=== PATIENT | male | born 1960 | race Caucasian/White ===

== ENCOUNTER 2018-05-09 07:24 | Emergency (ER) | payer BC, MEDICAID ==
--- NOTE | 2018-05-09 07:45 | ED ---
Throat Pain/Nasal Congestion - HPI Summary HPI Summary: This patient is a 57 year old M presenting to [facility] accompanied by a woman with a chief complaint of right sided facial swelling since this morning. The patient rates the pain 5/10 in severity. Patient reports dental pain. Pt states he began having mild swelling on 05-04-18, he was seen at dentist the next day, and teeth xrays were negative, he was given penicillin. 05-07-18 the sx slightly resolved until this morning when it was significantly worse. Pt is not on blood thinner - History of Current Complaint Chief Complaint: EDGeneral Time Seen by Provider: 05/09/18 07:36 Hx Obtained From: Patient Onset/Duration: Lasting Days, Still Present, Worse Since Severity: Mild Associated Signs And Symptoms: Positive: Negative - fever Cough: None - Allergies/Home Medications Allergies/Adverse Reactions: Allergies Allergy/AdvReac Type Severity Reaction Status Date / Time Sulfa (Sulfonamide Allergy Unknown Unknown Verified 05/09/18 07:31 Antibiotics) Reaction Details PMH/Surg Hx/FS Hx/Imm Hx Endocrine/Hematology History: Denies: Hx Diabetes, Hx Coagulopothy Cardiovascular History: Reports: Hx Hypercholesterolemia Denies: Hx Coronary Artery Disease, Hx Hypotension, Hx Hypertension, Hx Myocardial Infarction GI History: Reports: Hx Gastroesophageal Reflux Disease Infectious Disease History: No Infectious Disease History: Denies: Traveled Outside the [place] in Last 30 Days - Family History Known Family History: Positive: Cardiac Disease Negative: Respiratory Disease - Social History Lives: With Family Alcohol Use: Occasionally Hx Substance Use: No Substance Use Type: Reports: None Hx Tobacco Use: Yes Smoking Status (MU): Current Every Day Smoker Review of Systems Negative: Fever Positive: Dental Pain, Other - facial swelling All Other Systems Reviewed And Are Negative: Yes Physical Exam - Summary Physical Exam Summary: Appearance: Well appearing, no pain distress Skin: warm, dry, reflects adequate perfusion Head/face: normal Eyes: EOMI, SAMMY ENT: the ears are clear, there is infra-orbital swelling into the cheek and into the right upper lip down into the right side of the jaw. Inside the mouth there is a point ecchymotic area just above the second premolar and first right molar on the right side Neck: supple, non-tender Respiratory: there is mild wheezing Cardiovascular: RRR, pulses symmetrical Abdomen: non-tender, soft Bowel Sounds: present Musculoskeletal: normal, strength/ROM intact Neuro: normal, sensory motor intact, A&Ox3 Triage Information Reviewed: Yes Vital Signs On Initial Exam: Initial Vitals Temp Pulse Resp BP Pulse Ox 98.0 F 74 16 137/89 98 05/09/18 07:28 18 07:28 18 07:28 05/09/18 07:28 05/09/18 07:28 Vital Signs Reviewed: Yes Procedures - Procedure Summary Procedure Summary: Dental block: The right sided infraorbital nerve was blocked with a total of 1 cc of 0.5% bupivacaine with epinephrine. This greatly reduced his discomfort. He experienced no complication. Following the block the roof of the now spontaneously decompressed abscess was punctured to ensure persistent drainage. He tolerated this well without complication. Diagnostics - Vital Signs Vital Signs Temp Pulse Resp BP Pulse Ox 05/09/18 07:28 98.0 F 74 16 137/89 98 - Laboratory Result Diagrams: 05/09/18 08:18 05/09/18 08:18 Lab Statement: Any lab studies that have been ordered have been reviewed, and results considered in the medical decision making process. - CT CT Maxillofacial CT Interpretation Completed By: Radiologist - 1.8 CM LOCULATED FLUID COLLECTION ALONG THE RIGHT MAXILLA CONSISTENT WITH ABSCESS, LIKELY ODONTOGENIC. ED physician has reviewed this radiology report. Re-Evaluation - Re-Evaluation First Eval Re-Evaluation Time: 10:19 Change: Improved Comment: The patients abscess has begun to spontaneously drain. EENT Course/Dx - Course Course Of Treatment: Patient with obvious dental abscess on exam which was confirmed with CT. This does not extend further. When I reevaluated him after the CT it was spontaneously draining purulent material. A dose of IV clindamycin was given and he'll be continued on this as he has recently been on penicillin. Pain is gone with block. Follow-up with dental. - Differential Diagnoses Differential Diagnoses: Dental Abscess, Odontogenic Pain, Periodontic Abscess, Sinusitis - Diagnoses Provider Diagnoses: Dental abscess, Pain, dental Discharge - Sign-Out/Discharge Documenting (check all that apply): Patient Departure - Discharge Plan Condition: Improved Disposition: HOME Prescriptions: Chlorhexidine Gluconate [Periogard] 473 ml .SEE ORDER QID PRN #1 bottle PRN Reason: mouth soreness Clindamycin Cap(NF) [Clindamycin Cap 300 mg Cap(NF)] 300 mg PO Q6H #30 cap Naproxen [Naproxen 500 mg tab] 500 mg PO BID PRN #12 tablet.dr PELAYO Reason: Pain Patient Education Materials: Dental Abscess (ED) Referrals: [facility] [Outside] [facility] [Outside] Additional Instructions: Call your dentist today to schedule prompt follow-up. Return with fevers, increasing facial swelling, worse or other concerns. You may continue to experience drainage from the area. - Billing Disposition and Condition Condition: IMPROVED Disposition: Home - Attestation Statements Document Initiated by Poloibe: Yes Documenting Scribe: Thaddeus Macedo Provider For Whom Scribe is Documenting (Include Credential): Shashank Monique MD Scribe Attestation: Thaddeus Gamez scribed for Shashank Monique MD on 05/09/18 at 1043. Scribe Documentation Reviewed: Yes Provider Attestation: The documentation as recorded by the Thaddeus anderson accurately reflects the service I personally performed and the decisions made by Shashank mendosa MD
[2018-05-09] MEDS ORDERED: Ketorolac INJ* 30 MG/ML 1 ML VIAL IV PUSH ONE (07:46)
[2018-05-09 08:30] LABS: ABS Basophils 0 10^3/ul (0-0.2); ABS Eosinophils 0.3 10^3/ul (0-0.6); ABS Lymphocytes 1.4 10^3/ul (1.0-4.8); ABS Monocytes 1.1 10^3/ul (0-0.8); ABS Neutrophils 11.1 10^3/ul (1.5-7.7); ABS Nucleated RBC 0 10^3/ul; Eosinophil % 1.8 % (0-6); Hematocrit 42 % (42-52); Hemoglobin 14.3 g/dl (14.0-18.0); Lymphocyte % 10.3 % (25-47); Mean Corpuscular HGB Conc 34 g/dl (31-36); Mean Corpuscular Hemoglobin 30 pg (27-31); Mean Corpuscular Volume 90 fL (80-94); Mean Platelet Volume 7.5 um3 (7.4-10.4); Nucleated Red Blood Cells % 0; Platelet Count 328 10^3/ul (150-450); Red Blood Count 4.69 10^6/ul (4.00-5.40); Red Cell Distribution Width 13 % (10.5-15)
[2018-05-09 08:46] LABS: EGFR Non-African American 101.8 (>60)
[2018-05-09] MEDS ORDERED: Iohexol 300* (CONTRAST) 10 ML SDV IV ONE (09:19)
--- NOTE | 2018-05-09 10:06 | RAD ---
HISTORY: R facial swelling, pointing abscess COMPARISONS: None TECHNIQUE: Multiple contiguous axial CT scans were obtained of the face with intravenous contrast, with coronal and sagittal multiplanar reformations. FINDINGS: BONES: There is no displaced fracture or dislocation. The orbital rim is intact. The zygomatic arch is intact. The pterygoid plates are intact. There is carious disease. ORBITS: The globes are round. The optic nerves are symmetric. The extraocular musculature is normal. There is no post septal or intraconal inflammatory change. There is no retrobulbar hematoma. PARANASAL SINUSES: There is mucosal thickening of the right maxillary sinus. BRAIN AND SOFT TISSUE: There is a 1.8 x 0.5 x 1.7 cm loculated fluid collection along the alveolar margin of the right maxilla best seen on axial image 29. There is a small associated gas density. This is deep to the epiphysis of the fascia. Associated inflammatory change of the fat of the right face. OTHER: None. IMPRESSION: 1.8 CM LOCULATED FLUID COLLECTION ALONG THE RIGHT MAXILLA CONSISTENT WITH ABSCESS, LIKELY ODONTOGENIC.
[2018-05-09] MEDS ORDERED: Clindamycin 600 MG IVPREMIX(* 600 MG/50 ML SDV IV ONE (10:20)
[2018-05-09 11:33] VITALS: BP 111/82
== END 2018-05-09 11:29 | disposition home or self-care (01) ==
LOC: ED 07:24
DX: K04.7 Periapical abscess without sinus (principal); K08.89 Other specified disorders of teeth and supporting structures; R60.0 Localized edema; F17.210 Nicotine dependence, cigarettes, uncomplicated
CPT/HCPCS: 36415; 70487; 80048; 85025; 96374; 96375; 99282; J1885; Q9967